=== PATIENT | male | born 1980 | race African-American/Black ===

== ENCOUNTER 2018-12-18 09:52 | Emergency (ER) | payer MEDICAID, OTHER ==
[~2018-12-18] VITALS: Ht 190.5 cm; Wt 95.3 kg
[2018-12-18 11:08] VITALS: BP 155/111
[2018-12-18] MEDS ORDERED: cloNIDine HCL 0.1 MG TAB PO ONE (11:45)
[2018-12-18] MEDS ORDERED: IPRATROPIUM BROM 0.5 MG/2.5ML INH SOL NEB ONE (11:45)
[2018-12-18] MEDS ORDERED: ALBUTEROL SULF 2.5 MG/0.5ML(0.5%) NEB SOLN NEB ONE (11:45)
[2018-12-18] MEDS ORDERED: ALBUTEROL SULF 2.5 MG/0.5ML(0.5%) NEB SOLN ONE (11:48)
[2018-12-18] MEDS ORDERED: IPRATROPIUM BROM 0.5 MG/2.5ML INH SOL ONE (11:48)
[2018-12-18] MEDS ORDERED: cloNIDine HCL 0.1 MG TAB ONE ×2 (11:59)
== END 2018-12-18 13:17 | disposition home or self-care (01) ==
LOC: ER 09:56
DX: J45.909 Unspecified asthma, uncomplicated (principal); F12.10 Cannabis abuse, uncomplicated; F17.210 Nicotine dependence, cigarettes, uncomplicated; F10.10 Alcohol abuse, uncomplicated
CPT/HCPCS: 94640; 99283; J7611; J7644